=== PATIENT | male | born 1970 | race Caucasian/White ===

== ENCOUNTER 2016-05-25 09:10 | Emergency (ER) | payer BC ==
[~2016-05-25] VITALS: Ht 180.3 cm; Wt 110.0 kg
[2016-05-25 09:14] VITALS: BP 141/103; PULSE 111; RESP 16; TEMP 98.2; O2SAT 100
--- NOTE | 2016-05-25 10:07 | PD ---
HPI Chief Complaint: Cardiac Complaint Time Seen by Provider: 10:00 Travel History International Travel<30 days: No Contact w/Intl Traveler<30days: No Traveled to known affect area: No History of Present Illness HPI The patient is a 45-year-old male who presents emergency department for palpitations. The patient has a history of atrial fibrillation, first diagnosed 7 years ago. The patient is followed by his transportation attendant and linseed oil refiner and [place], [place]. The patient states he recently had a stress echocardiogram that was inconclusive, therefore, had a CTA of the chest performed which revealed 30% cardiac disease. The patient has a follow-up appointment with his transportation attendant later this week, is scheduled to fly back to [facility]. The patient states he felt "fluttering "in his chest earlier today. The patient does take metoprolol extended release 100 mg daily, normally in the afternoon. He also takes a full size aspirin daily. The patient does have a history of hypertension, hyperlipidemia, and atrial fibrillation. He denies any history of pulmonary embolism or DVT. Symptoms are moderate, possibly exacerbated by underlying atrial fibrillation, and there are no current alleviating factors. The patient was advised by his linseed oil refiner that if his atrial fibrillation returned he may undergo ablation, he has an appointment with his transportation attendant for follow-up. PFSH Past Medical History Narrative Medical Hypertension, hyperlipidemia, atrial fibrillation Cardiovascular Problems: Yes Past Surgical History Narrative Surgical Cardiac catheterization with the EP study Social History Tobacco Use: No Allergies-Medications (Allergen,Severity, Reaction): Coded Allergies: No Known Allergies (Unverified , 05/25/16) Reported Meds & Prescriptions Reported Meds & Active Scripts Active Reported Aspirin 325 Mg Tab 325 Mg PO DAILY Atorvastatin (Atorvastatin Calcium) 40 Mg Tab 40 Mg PO HS Valsartan-Hydrochlorothiazide 160-25 Mg Tab 1 Tab PO DAILY Toprol XL (Metoprolol Succinate) 100 Mg Tab 100 Mg PO DAILY Lovaza (Zmlmh-6-Utxn Ethyl Esters) 1 Gm Cap 4 Gm PO TID Amlodipine (Amlodipine Besylate) 10 Mg Tab 10 Mg PO DAILY Review of Systems Except as stated in HPI: all other systems reviewed are Neg General / Constitutional: No: Fever HENT: No: Lightheadedness Cardiovascular: Positive: Palpitations, Irregular Rhythm, Tachycardia, No: Chest Pain or Discomfort, Diaphoresis Gastrointestinal: No: Nausea, Vomiting, Abdominal Pain Musculoskeletal: No: Edema Physical Exam Narrative GENERAL: Awake, alert, pleasant 45-year-old male who appears his stated age and is in no acute respiratory distress. SKIN: Warm and dry. HEAD: Atraumatic. Normocephalic. EYES: Pupils equal and round. No scleral icterus. No injection or drainage. ENT: No nasal bleeding or discharge. Mucous membranes pink and moist. NECK: Trachea midline. No JVD. CARDIOVASCULAR: Irregularly irregular, heart rate 114. RESPIRATORY: No accessory muscle use. Clear to auscultation. Breath sounds equal bilaterally. GASTROINTESTINAL: Abdomen soft, non-tender, nondistended. MUSCULOSKELETAL: No obvious deformities. No clubbing. No cyanosis. No edema. NEUROLOGICAL: Awake and alert. No obvious cranial nerve deficits. Motor grossly within normal limits. Normal speech. PSYCHIATRIC: Appropriate mood and affect; insight and judgment normal. Data Data Last Documented VS Vital Signs Date Time Temp Pulse Resp B/P Pulse Ox O2 Delivery O2 Flow Rate FiO2 05/25/16 10:13 106 30 145/80 98 Room Air 05/25/16 09:14 98.2 Orders Electrocardiogram (05/25/16 ) Ckmb (Isoenzyme) Profile (05/25/16 10:01) Complete Blood Count With Diff (05/25/16 10:01) Comprehensive Metabolic Panel (05/25/16 10:01) Magnesium (Mg) (05/25/16 10:01) Prothrombin Time / Inr (Pt) (05/25/16 10:01) Act Partial Throm Time (Ptt) (05/25/16 10:01) Ecg Monitoring (05/25/16 10:01) Bilateral Bp Monitoring (05/25/16 10:01) Iv Access Insert/Monitor (05/25/16 10:01) Oximetry (05/25/16 10:01) Oxygen Administration (05/25/16 10:01) Aspirin Chew (Aspirin Chew) (05/25/16 10:15) Sodium Chloride 0.9% Flush (Ns Flush) (05/25/16 10:15) Sodium Chlorid 0.9% 500 Ml Inj (Ns 500 M (05/25/16 10:15) Metoprolol Tartrate Inj (Lopressor Inj) (05/25/16 10:15) Metoprolol Succinate Er (Toprol Xl) (05/25/16 10:15) Labs Laboratory Tests Test 05/25/16 10:10 White Blood Count 7.0 TH/MM3 Red Blood Count 5.54 MIL/MM3 Hemoglobin 16.4 GM/DL Hematocrit 49.1 % Mean Corpuscular Volume 88.5 FL Mean Corpuscular Hemoglobin 29.6 PG Mean Corpuscular Hemoglobin 33.5 % Concent Red Cell Distribution Width 13.3 % Platelet Count 161 TH/MM3 Mean Platelet Volume 11.1 FL Neutrophils (%) (Auto) 72.6 % Lymphocytes (%) (Auto) 19.2 % Monocytes (%) (Auto) 6.1 % Eosinophils (%) (Auto) 1.3 % Basophils (%) (Auto) 0.8 % Neutrophils # (Auto) 5.1 TH/MM3 Lymphocytes # (Auto) 1.3 TH/MM3 Monocytes # (Auto) 0.4 TH/MM3 Eosinophils # (Auto) 0.1 TH/MM3 Basophils # (Auto) 0.1 TH/MM3 CBC Comment DIFF FINAL Differential Comment Prothrombin Time 10.5 SEC Prothromb Time International 1.0 RATIO Ratio Activated Partial 27.6 SEC Thromboplast Time Sodium Level 139 MEQ/L Potassium Level 3.6 MEQ/L Chloride Level 103 MEQ/L Carbon Dioxide Level 26.5 MEQ/L Anion Gap 10 MEQ/L Blood Urea Nitrogen 10 MG/DL Creatinine 0.95 MG/DL Estimat Glomerular Filtration 86 ML/MIN Rate Random Glucose 123 MG/DL Calcium Level 9.5 MG/DL Magnesium Level 2.4 MG/DL Total Bilirubin 1.0 MG/DL Aspartate Amino Transf 32 U/L (AST/SGOT) Alanine Aminotransferase 66 U/L (ALT/SGPT) Alkaline Phosphatase 63 U/L Total Creatine Kinase 93 U/L Total Protein 8.1 GM/DL Albumin 4.5 GM/DL [facility] Medical Decision Making Medical Screen Exam Complete: Yes Emergency Medical Condition: Yes Medical Record Reviewed: Yes Interpretation(s) EKG reveals atrial fibrillation with RVR, rate 119. Q wave noted in lead 3 and aVF. Laboratory Tests Test 05/25/16 10:10 White Blood Count 7.0 TH/MM3 Red Blood Count 5.54 MIL/MM3 Hemoglobin 16.4 GM/DL Hematocrit 49.1 % Mean Corpuscular Volume 88.5 FL Mean Corpuscular Hemoglobin 29.6 PG Mean Corpuscular Hemoglobin 33.5 % Concent Red Cell Distribution Width 13.3 % Platelet Count 161 TH/MM3 Mean Platelet Volume 11.1 FL Neutrophils (%) (Auto) 72.6 % Lymphocytes (%) (Auto) 19.2 % Monocytes (%) (Auto) 6.1 % Eosinophils (%) (Auto) 1.3 % Basophils (%) (Auto) 0.8 % Neutrophils # (Auto) 5.1 TH/MM3 Lymphocytes # (Auto) 1.3 TH/MM3 Monocytes # (Auto) 0.4 TH/MM3 Eosinophils # (Auto) 0.1 TH/MM3 Basophils # (Auto) 0.1 TH/MM3 CBC Comment DIFF FINAL Differential Comment Prothrombin Time 10.5 SEC Prothromb Time International 1.0 RATIO Ratio Activated Partial 27.6 SEC Thromboplast Time Sodium Level 139 MEQ/L Potassium Level 3.6 MEQ/L Chloride Level 103 MEQ/L Carbon Dioxide Level 26.5 MEQ/L Anion Gap 10 MEQ/L Blood Urea Nitrogen 10 MG/DL Creatinine 0.95 MG/DL Estimat Glomerular Filtration 86 ML/MIN Rate Random Glucose 123 MG/DL Calcium Level 9.5 MG/DL Magnesium Level 2.4 MG/DL Total Bilirubin 1.0 MG/DL Aspartate Amino Transf 32 U/L (AST/SGOT) Alanine Aminotransferase 66 U/L (ALT/SGPT) Alkaline Phosphatase 63 U/L Total Creatine Kinase 93 U/L Total Protein 8.1 GM/DL Albumin 4.5 GM/DL Differential Diagnosis Differential diagnosis includes atrial fibrillation with RVR, arrhythmia, sinus tachycardia, pulmonary embolism, hyperthyroidism, acute coronary syndrome, electrolyte abnormality. Narrative Course IV was established, labs are drawn and sent, and the patient was placed on cardiac telemetry monitoring and continuous pulse oximetry monitoring. EKG was ordered and interpreted. The patient was administered Lopressor 1.25 g intravenously and was given his metoprolol 100 mg extended release tablet in the emergency department. Electrolytes are unremarkable. The patient has a previous history of atrial fibrillation with previous workup including EP study , CTA, and echocardiogram. The patient has a follow-up appointment with his transportation attendant and linseed oil refiner in [place], he has a flight tonight to go back to [place]. The patient will be provided a copy of his labs and EKG at discharge. He is advised to follow-up with his transportation attendant and return if symptoms worsen or progress. The patient's heart rate came down into the 80s, patient is stable for follow-up with his transportation attendant. Diagnosis Primary Impression: Atrial fibrillation with RVR Patient Instructions: General Instructions Additional Instructions: Please provide a patient a copy of his EKG and lab results at discharge. Continue current medications as previously directed. Follow-up with her transportation attendant and linseed oil refiner. Return if symptoms worsen or progress. Med/Other Pt SpecificInfo: No Change to Meds Disposition: 01 DISCHARGE HOME Condition: Stable Fili Regan MD May 25, 2016 10:07
[2016-05-25 10:13] VITALS: BP 145/80; PULSE 106; RESP 30; O2SAT 98
[2016-05-25] MEDS ORDERED: METOPROLOL TARTRATE 5 MG/5 ML VIAL IV PUSH ONE (10:15)
[2016-05-25] MEDS ORDERED: METOPROLOL SUCCINATE 50 MG EXTENDED RELEASE TAB PO ONE (10:15)
[2016-05-25] MEDS ORDERED: SODIUM CHLORIDE 0.9% FLUSH 10 ML FLUSH IVF PRN (10:15)
[2016-05-25] MEDS ORDERED: SODIUM CHLORID 0.9% 500 ML INJ 500 ML IV ONE (10:15)
[2016-05-25] MEDS ORDERED: ASPIRIN 81 MG CHEW TAB PO ONE (10:15)
[2016-05-25] MEDS ORDERED: VALS160T6 PO (10:19)
[2016-05-25] MEDS ORDERED: OMEG1CAP53 PO (10:19)
[2016-05-25] MEDS ORDERED: TOPR100T PO (10:19)
[2016-05-25] MEDS ORDERED: ATOR40TA16 PO (10:19)
[2016-05-25] MEDS ORDERED: AMLO10TA2 PO (10:19)
[2016-05-25] MEDS ORDERED: ASPI325T PO (10:19)
[2016-05-25 10:30] LABS: AUTOMATED NEUTROPHIL # 5.1 TH/MM3 (1.8-7.7); BASOPHIL # 0.1 TH/MM3 (0-0.2); BASOPHIL % 0.8 % (0.0-2.0); EOSINOPHIL # 0.1 TH/MM3 (0-0.4); EOSINOPHIL % 1.3 % (0.0-4.0); HEMATOCRIT 49.1 % (39.0-51.0); HEMO FLAGS DIFF FINAL; LYMPH % 19.2 % (9.0-44.0); LYMPHOCYTE # 1.3 TH/MM3 (1.0-4.8); MEAN CELL VOLUME 88.5 FL (80.0-100.0); MEAN CORPUSCULAR HEMOGLOBIN 29.6 PG (27.0-34.0); MEAN CORPUSCULAR HGB CONC 33.5 % (32.0-36.0); MONO % 6.1 % (0.0-8.0); NEUT % 72.6 % (16.0-70.0); PLATELET COUNT 161 TH/MM3 (150-450); RED BLOOD COUNT 5.54 MIL/MM3 (4.50-5.90); RED CELL DISTRIBUTION WIDTH 13.3 % (11.6-17.2)
[2016-05-25 10:39] LABS: APTT (PATIENT) 27.6 SEC (24.3-30.1); PROTHROMBIN TIME - PATIENT 10.5 SEC (9.8-11.6)
[2016-05-25 10:58] LABS: ALKALINE PHOSPHATASE 63 U/L (45-117); ALT (GPT) 66 U/L (12-78); ANION GAP 10 MEQ/L (5-15); AST (GOT) 32 U/L (15-37); BICARBONATE 26.5 MEQ/L (21.0-32.0); BLOOD UREA NITROGEN 10 MG/DL (7-18); CHLORIDE 103 MEQ/L (98-107); GLOMERULAR FILTRATION RATE 86 ML/MIN (>89); MAGNESIUM 2.4 MG/DL (1.5-2.5); POTASSIUM 3.6 MEQ/L (3.5-5.1); SODIUM (NA) 139 MEQ/L (136-145)
[2016-05-25 11:01] LABS: CREATINE KINASE 93 U/L (39-308)
--- NOTE | 2016-05-26 21:27 | EKG ---
Date Performed: 05/25/2016 Time Performed: 09:22:46 PTAGE: 45 years EKG: ATRIAL FIBRILLATION WITH RAPID VENTRICULAR RESPONSE INFERIOR MYOCARDIAL INFARCTION ABNORMAL ECG NO PREVIOUS TRACING DOCTOR: Minna Perez Interpretating Date/Time 05/26/2016 21:25:47
== END 2016-05-25 12:07 | disposition home or self-care (01) ==
LOC: NEPE 09:10
DX: I48.91 Unspecified atrial fibrillation (principal); E78.5 Hyperlipidemia, unspecified; I10 Essential (primary) hypertension
CPT/HCPCS: 80053; 82550; 83735; 85025; 85610; 85730; 93005; 96361; 96374; 99285; J7040